=== PATIENT | male | born 1955 | race Caucasian/White ===

== ENCOUNTER 2017-03-29 16:40 | Inpatient (IN) | payer BC, OTHER ==
[~2017-03-29] VITALS: Ht 175.3 cm; Wt 86.2 kg
[2017-03-29 20:12] VITALS: BP 91/64
[2017-03-29] MEDS ORDERED: THIAMINE HCL 200 MG/2 ML VIAL IM ONE (20:45)
[2017-03-29] MEDS ORDERED: ONDANSETRON ODT 4 MG TAB.RAPDIS SL PRN (20:45)
[2017-03-29] MEDS ORDERED: ACETAMINOPHEN 325 MG TABLET PO PRN (20:45)
[2017-03-29] MEDS ORDERED: MAGNESIUM HYDROXIDE 30 ML LIQUID UDC PO PRN (20:45)
[2017-03-29] MEDS ORDERED: MAG HYDROX/AL HYDROX/SIMETH 30 ML LIQUID UDC PO PRN (20:45)
[2017-03-29] MEDS ORDERED: LORAZEPAM 1 MG TABLET PO PRN ×2 (20:45)
[2017-03-29] MEDS ORDERED: LORAZEPAM 2 MG/1 ML VIAL IM PRN (20:45)
[2017-03-29] MEDS ORDERED: ONDANSETRON 4 MG/2 ML VIAL IM PRN (20:45)
[2017-03-29] MEDS ORDERED: DICYCLOMINE HCL 20 MG TABLET PO PRN (20:45)
[2017-03-29] MEDS ORDERED: LOPERAMIDE HCL 2 MG CAPSULE PO PRN (20:45)
[2017-03-29] MEDS ORDERED: MIRALAX 17 GM POWD.PACK PO PRN (20:45)
[2017-03-29] MEDS: PATIENT MAY USE OWN MED- MD OK PO SCH (21:00)
[2017-03-29] MEDS ORDERED: LEVETIRACETAM 500 MG/5 ML LIQUID UDC NG SCH (21:00)
[2017-03-29 22:04] LABS: BASOPHILS % (AUTO) 0.8 % (0.0-2.0); EOSINOPHILS # (AUTO) 0.1 K/uL (0.0-0.7); EOSINOPHILS % (AUTO) 2.6 % (0.0-7.0); HEMATOCRIT 42.7 % (40-50); HEMOGLOBIN 14.7 G/DL (14.0-18.0); LYMPHOCYTES # (AUTO) 1.8 K/uL (20.0-40.0); LYMPHOCYTES % (AUTO) 38.2 % (20.5-51.5); MEAN CORPUSCULAR HEMOGLOBIN 31.9 UUG (27.0-31.0); MEAN CORPUSCULAR HGB CONC 34 g/dL (32.0-37.0); MEAN CORPUSCULAR VOLUME 92.7 FL (82.0-92.0); MONOCYTES # (AUTO) 0.6 K/uL (2.0-10.0); MONOCYTES % (AUTO) 12.6 % (0.0-11.0); NEUTROPHILS # (AUTO) 2.3 K/uL (1.8-8.9); NEUTROPHILS % (AUTO) 45.8 % (38.5-71.5); PLATELET COUNT (AUTO) 213 K/UL (150-450); RED BLOOD CELL COUNT(AUTO) 4.61 MIL/UL (4.7-6.1); RED CELL DISTRIBUTION WIDTH 12.4 % (11.5-14.5); WHITE BLOOD COUNT (AUTO) 4.8 K/UL (4.0-11.2)
[2017-03-29] MEDS: LEVETIRACETAM 500 MG TABLET PO SCH (22:12)
[2017-03-29 22:29] LABS: BILIRUBIN,TOTAL 0.7 mg/dL (0.2-1.0); CALCIUM 8.6 mg/dL (8.5-10.1); CREATININE 1.2 mg/dL (0.6-1.3); MAGNESIUM 1.8 mg/dL (1.8-2.4); POTASSIUM 4.1 mmol/L (3.5-5.1); TOTAL PROTEIN, SERUM 7.1 g/dL (6.4-8.2)
[2017-03-29 22:40] LABS: THYROID STIMULATING HORMONE 2.289 mIU/mL (0.358-3.740)
[2017-03-29 22:44] LABS: HIV-1 p24 ANTIGEN NON REACTIVE (NONREACTIVE); HIV-1/2 ANTIBODY NON REACTIVE (NONREACTIVE)
[2017-03-30 00:14] VITALS: BP 118/79
[2017-03-30] MEDS ORDERED: ALFU10TA10 PO (02:28)
[2017-03-30] MEDS ORDERED: TRAZ-147 PO (02:28)
[2017-03-30] MEDS ORDERED: METO-304 PO (02:28)
[2017-03-30] MEDS ORDERED: CELE100C98 PO (02:28)
[2017-03-30] MEDS ORDERED: LEVO50TA8 PO (02:28)
[2017-03-30] MEDS ORDERED: GABA-536 PO (02:28)
[2017-03-30] MEDS ORDERED: TEST1.25 TD (02:28)
[2017-03-30] MEDS ORDERED: CLON0.1T PO (02:28)
[2017-03-30] MEDS ORDERED: LEVE500T9 PO (02:28)
[2017-03-30] MEDS ORDERED: QUET100T PO (02:28)
[2017-03-30] MEDS ORDERED: PANT40TA4 PO (02:28)
[2017-03-30] MEDS ORDERED: ZIPR40CA14 PO (02:28)
[2017-03-30] MEDS ORDERED: TADA5TAB2 PO (02:28)
[2017-03-30] MEDS ORDERED: VENL75CA62 PO (02:28)
[2017-03-30] MEDS: IV NS 1000 ML 1,000 ML IV PRN ×2 (03:42→17:00)
[2017-03-30 04:05] VITALS: BP 122/84
[2017-03-30 04:20] LABS: *AMPHETAMINE, URINE NEGATIVE (NEGATIVE); *BARBITURATE, URINE NEGATIVE (NEGATIVE); *CANNABINOID, URINE NEGATIVE (NEGATIVE); *COCCAINE, URINE NEGATIVE (NEGATIVE); *OPIATE, URINE NEGATIVE (NEGATIVE); *PHENCYCLIDINE SCREEN,URINE NEGATIVE (NEGATIVE)
[2017-03-30] MEDS: PANTOPRAZOLE SODIUM 40 MG TABLET.DR PO SCH (06:51)
[2017-03-30] MEDS: LEVOTHYROXINE SODIUM 50 MCG TABLET PO SCH (06:51)
[2017-03-30 08:00] VITALS: BP 121/79
[2017-03-30] MEDS: THIAMINE HCL 100 MG TABLET PO SCH (08:22)
[2017-03-30] MEDS: FOLIC ACID 1 MG TABLET PO SCH (08:22)
[2017-03-30] MEDS: LEVETIRACETAM 500 MG TABLET PO SCH ×2 (08:22→21:12)
[2017-03-30] MEDS: GABAPENTIN 400 MG CAPSULE PO SCH ×3 (08:22→16:14)
[2017-03-30] MEDS: LORAZEPAM 1 MG TABLET PO SCH ×4 (08:22→21:11)
[2017-03-30] MEDS: MULTIVITAMINS,THERAPEUTIC TABLET PO SCH (08:22)
[2017-03-30] MEDS ORDERED: TUBERCULIN,PURIF.PROT.DERIV. 5 TU/0.1 ML TEST ID ONE (09:00)
[2017-03-30 12:00] VITALS: BP 142/89
[2017-03-30] MEDS: ENOXAPARIN SODIUM 40 MG/0.4 ML DISP.SYRIN SQ SCH (12:29)
[2017-03-30] MEDS: LOPERAMIDE HCL 2 MG CAPSULE PO PRN (16:13)
[2017-03-30] MEDS: QUETIAPINE FUMARATE 100 MG TABLET PO SCH (16:13)
[2017-03-30 16:20] VITALS: BP 180/107
[2017-03-30] MEDS: hydrALAZINE HCL 25 MG TABLET PO PRN ×2 (16:21→23:50)
[2017-03-30] MEDS ORDERED: METOPROLOL SUCCINATE XL 50 MG TAB.SR.24H PO ONE (17:00)
[2017-03-30 20:00] VITALS: BP 160/93
[2017-03-30] MEDS: diphenhydrAMINE 50 MG CAPSULE PO PRN (21:12)
[2017-03-30] MEDS: IBUPROFEN 400 MG TABLET PO PRN (21:12)
[2017-03-30] MEDS: PATIENT MAY USE OWN MED- MD OK PO SCH (21:32)
[2017-03-31] VITALS: BP 171/110
[2017-03-31] MEDS ORDERED: CLONIDINE HCL 0.1 MG TABLET PO ONE ×2 (02:45→04:45)
[2017-03-31] MEDS ORDERED: CLONIDINE HCL 0.1 MG TABLET ONE ×2 (02:53→04:44)
[2017-03-31] MEDS: PANTOPRAZOLE SODIUM 40 MG TABLET.DR PO SCH (06:42)
[2017-03-31] MEDS: LEVOTHYROXINE SODIUM 50 MCG TABLET PO SCH (06:42)
[2017-03-31] MEDS: METOPROLOL SUCCINATE XL 50 MG TAB.SR.24H PO SCH (06:56)
[2017-03-31 07:29] VITALS: BP 180/105
[2017-03-31 08:15] VITALS: BP 183/103
[2017-03-31] MEDS: LORAZEPAM 1 MG TABLET PO SCH ×3 (08:15→20:54)
[2017-03-31] MEDS: MULTIVITAMINS,THERAPEUTIC TABLET PO SCH (08:15)
[2017-03-31] MEDS: GABAPENTIN 400 MG CAPSULE PO SCH ×3 (08:15→17:19)
[2017-03-31] MEDS: QUETIAPINE FUMARATE 100 MG TABLET PO SCH (08:15)
[2017-03-31] MEDS: LEVETIRACETAM 500 MG TABLET PO SCH ×2 (08:16→20:54)
[2017-03-31] MEDS: FOLIC ACID 1 MG TABLET PO SCH (08:16)
[2017-03-31] MEDS: THIAMINE HCL 100 MG TABLET PO SCH (08:16)
[2017-03-31] MEDS: ENOXAPARIN SODIUM 40 MG/0.4 ML DISP.SYRIN SQ SCH (08:17)
[2017-03-31 08:28] LABS: BASOPHILS % (AUTO) 0.8 % (0.0-2.0); EOSINOPHILS # (AUTO) 0.1 K/uL (0.0-0.7); EOSINOPHILS % (AUTO) 3.1 % (0.0-7.0); HEMATOCRIT 41.7 % (40-50); HEMOGLOBIN 14.3 G/DL (14.0-18.0); LYMPHOCYTES # (AUTO) 0.8 K/uL (20.0-40.0); LYMPHOCYTES % (AUTO) 21.5 % (20.5-51.5); MEAN CORPUSCULAR HEMOGLOBIN 31.1 UUG (27.0-31.0); MEAN CORPUSCULAR HGB CONC 34 g/dL (32.0-37.0); MEAN CORPUSCULAR VOLUME 90.8 FL (82.0-92.0); MONOCYTES # (AUTO) 0.4 K/uL (2.0-10.0); MONOCYTES % (AUTO) 12.2 % (0.0-11.0); NEUTROPHILS # (AUTO) 2.3 K/uL (1.8-8.9); NEUTROPHILS % (AUTO) 62.4 % (38.5-71.5); PLATELET COUNT (AUTO) 192 K/UL (150-450); RED BLOOD CELL COUNT(AUTO) 4.59 MIL/UL (4.7-6.1); RED CELL DISTRIBUTION WIDTH 12.1 % (11.5-14.5); WHITE BLOOD COUNT (AUTO) 3.7 K/UL (4.0-11.2)
[2017-03-31 08:44] LABS: CALCIUM 8.7 mg/dL (8.5-10.1); CREATININE 1.1 mg/dL (0.6-1.3); MAGNESIUM 1.7 mg/dL (1.8-2.4); PHOSPHOROUS 3.1 mg/dL (2.5-4.9); POTASSIUM 4.3 mmol/L (3.5-5.1)
[2017-03-31] MEDS ORDERED: VENLAFAXINE XR 75 MG CAP.SR.24H PO SCH (09:00)
[2017-03-31 09:05] LABS: FOLIC ACID 11.6 NG/ML (8.6-58.9)
[2017-03-31] MEDS ORDERED: LORAZEPAM 1 MG TABLET PO ONE (09:45)
[2017-03-31] MEDS ORDERED: CLONIDINE HCL 0.2 MG TABLET PO ONE (09:45)
[2017-03-31 10:10] LABS: HCV AB <0.1 s/co ratio (0.0-0.9); HEPATITIS B CORE AB, IgM Negative (Negative); HEPATITIS B SURFACE AG Negative (Negative)
[2017-03-31] MEDS: hydrALAZINE HCL 25 MG TABLET PO PRN (10:28)
[2017-03-31] MEDS ORDERED: MAGNESIUM OXIDE 400 MG TABLET PO ONE (11:45)
[2017-03-31 12:00] VITALS: BP 148/95
[2017-03-31 13:09] LABS: AMMONIA < 10 umol/L (11-32)
[2017-03-31 13:19] LABS: ALANINE AMINOTRANSFERASE 21 U/L (16-63); ALBUMIN 3.5 g/dL (3.4-5.0); ALKALINE PHOSPHATASE 66 U/L (50-136); ASPARTATE AMINOTRANSFERASE 21 U/L (15-37); BILIRUBIN,DIRECT 0.1 mg/dL (0.0-0.2); BILIRUBIN,TOTAL 0.2 mg/dL (0.2-1.0); BILIRUBIN,TOTAL 0.3 mg/dL (0.2-1.0); CALCIUM 8.4 mg/dL (8.5-10.1); CARBON DIOXIDE 29 mmol/L (21-32); CHLORIDE 102 mmol/L (98-107); CREATININE 1.2 mg/dL (0.6-1.3); GFR 62 mL/min (>60); GLUCOSE 124 mg/dL (74-106); POTASSIUM 4.7 mmol/L (3.5-5.1); SODIUM SERUM 135 mmol/L (136-145); TOTAL PROTEIN, SERUM 6.3 g/dL (6.4-8.2); UREA NITROGEN, BLOOD 7 mg/dL (7-18)
[2017-03-31 15:28] LABS: *BILIRUBIN,URIN NEGATIVE (NEGATIVE); *BLOOD, URINE NEGATIVE (NEGATIVE); *CLARITY,URINE CLEAR (CLEAR); *COLOR,URINE LIGHT YELLOW (YELLOW); *KETONES,URINE NEGATIVE (NEGATIVE); *PROTEIN,URINE NEGATIVE (NEGATIVE); LEUKOCYTE ESTERASE ,URINE NEGATIVE (NEGATIVE); NITRITE, URINE NEGATIVE (NEGATIVE); PH,URINE 6.5 (5.0-8.0); UGLUCOSE NEGATIVE (NEGATIVE)
[2017-03-31 15:34] LABS: BACTERIA,URINE FEW /HPF (NONE SEEN); RBC,URINE 0-3 /HPF (0-3); SQUAMOUS EPITHELIAL CELL,UR NONE SEEN /HPF (NONE SEEN); WBC,URINE NONE SEEN /HPF (0-3)
[2017-03-31 16:10] LABS: ABG BASE EXCESS -0.2 mmol/L; ABG HCO3 23.9 mmol/L; ABG PCO2 37.2 mmHg (35.0-45.0); ABG PH 7.425 (7.350-7.450); ABG PO2 74.4 mmHg (75.0-100.0); ABG SITE RIGHT RADIAL; ABG TOTAL HEMOGLOBIN 13.2 G/dL (13.5-18.0); COHb 1.8 % (0.5-1.5); MetHb 0.3 % (0.0-1.5); O2Hb 93.3 % (94.0-97.0); VENT MODE ROOM AIR
[2017-03-31 16:55] VITALS: BP 122/85
[2017-03-31] MEDS: CLONIDINE HCL 0.1 MG TABLET PO SCH (17:20)
[2017-03-31 20:00] VITALS: BP 125/84
[2017-03-31] MEDS ORDERED: LORAZEPAM 1 MG TABLET PO PRN ×2 (20:15)
[2017-03-31] MEDS: PATIENT MAY USE OWN MED- MD OK PO SCH (20:53)
[2017-04-01] VITALS: BP 143/100
[2017-04-01 04:00] VITALS: BP 154/109
[2017-04-01] MEDS: LEVOTHYROXINE SODIUM 50 MCG TABLET PO SCH (07:30)
[2017-04-01] MEDS: PANTOPRAZOLE SODIUM 40 MG TABLET.DR PO SCH (07:30)
[2017-04-01 07:40] LABS: BASOPHILS % (AUTO) 0.1 % (0.0-2.0); EOSINOPHILS # (AUTO) 0.2 K/uL (0.0-0.7); EOSINOPHILS % (AUTO) 3.4 % (0.0-7.0); HEMATOCRIT 40.6 % (40-50); LYMPHOCYTES # (AUTO) 1.1 K/uL (20.0-40.0); LYMPHOCYTES % (AUTO) 21.1 % (20.5-51.5); MEAN CORPUSCULAR HGB CONC 35 g/dL (32.0-37.0); MEAN CORPUSCULAR VOLUME 92.7 FL (82.0-92.0); MONOCYTES # (AUTO) 0.6 K/uL (2.0-10.0); MONOCYTES % (AUTO) 11.6 % (0.0-11.0); NEUTROPHILS # (AUTO) 3.2 K/uL (1.8-8.9); NEUTROPHILS % (AUTO) 63.8 % (38.5-71.5); PLATELET COUNT (AUTO) 197 K/UL (150-450); RED BLOOD CELL COUNT(AUTO) 4.38 MIL/UL (4.7-6.1); RED CELL DISTRIBUTION WIDTH 12.4 % (11.5-14.5)
[2017-04-01 07:54] LABS: CALCIUM 8.7 mg/dL (8.5-10.1); CREATININE 1.1 mg/dL (0.6-1.3); MAGNESIUM 1.8 mg/dL (1.8-2.4); PHOSPHOROUS 3.8 mg/dL (2.5-4.9)
[2017-04-01 07:59] LABS: WHITE BLOOD COUNT (AUTO) 5.1 K/UL (4.0-11.2)
[2017-04-01 09:20] VITALS: BP 162/103
[2017-04-01] MEDS: METOPROLOL SUCCINATE XL 50 MG TAB.SR.24H PO SCH (09:27)
[2017-04-01] MEDS: AMLODIPINE 5 MG TABLET PO SCH (09:28)
[2017-04-01] MEDS: CLONIDINE HCL 0.1 MG TABLET PO SCH ×2 (09:28→16:17)
[2017-04-01] MEDS: ENOXAPARIN SODIUM 40 MG/0.4 ML DISP.SYRIN SQ SCH (09:28)
[2017-04-01] MEDS: THIAMINE HCL 100 MG TABLET PO SCH (09:29)
[2017-04-01] MEDS: MULTIVITAMINS,THERAPEUTIC TABLET PO SCH (09:29)
[2017-04-01] MEDS: LEVETIRACETAM 500 MG TABLET PO SCH ×2 (09:29→21:36)
[2017-04-01] MEDS: FOLIC ACID 1 MG TABLET PO SCH (09:29)
[2017-04-01] MEDS: GABAPENTIN 400 MG CAPSULE PO SCH ×3 (09:29→16:16)
[2017-04-01] MEDS: LORAZEPAM 1 MG TABLET PO SCH ×4 (09:29→21:36)
[2017-04-01] MEDS: IBUPROFEN 400 MG TABLET PO PRN (11:28)
[2017-04-01] MEDS: hydrALAZINE HCL 25 MG TABLET PO PRN (11:31)
[2017-04-01] MEDS: CLONIDINE HCL 0.1 MG TABLET PO PRN (11:31)
[2017-04-01 12:31] VITALS: BP 192/120
[2017-04-01] MEDS: VENLAFAXINE XR 75 MG CAP.SR.24H PO SCH (12:59)
[2017-04-01] MEDS: QUETIAPINE FUMARATE 100 MG TABLET PO SCH ×2 (12:59→16:16)
[2017-04-01] MEDS: LISINOPRIL 10 MG TABLET PO SCH (13:31)
[2017-04-01 16:21] VITALS: BP 149/88
[2017-04-01 20:00] VITALS: BP 118/65
[2017-04-01] MEDS: PATIENT MAY USE OWN MED- MD OK PO SCH (21:37)
[2017-04-02] VITALS: BP 144/86
[2017-04-02 04:00] VITALS: BP 116/56
[2017-04-02] MEDS: PANTOPRAZOLE SODIUM 40 MG TABLET.DR PO SCH (06:59)
[2017-04-02] MEDS: LEVOTHYROXINE SODIUM 50 MCG TABLET PO SCH (06:59)
[2017-04-02 08:00] VITALS: BP 136/70
[2017-04-02] MEDS: THIAMINE HCL 100 MG TABLET PO SCH (09:00)
[2017-04-02] MEDS: LEVETIRACETAM 500 MG TABLET PO SCH ×2 (09:00→20:49)
[2017-04-02] MEDS: FOLIC ACID 1 MG TABLET PO SCH (09:00)
[2017-04-02] MEDS: VENLAFAXINE XR 75 MG CAP.SR.24H PO SCH (09:00)
[2017-04-02] MEDS: GABAPENTIN 400 MG CAPSULE PO SCH ×2 (09:00→12:10)
[2017-04-02] MEDS: MULTIVITAMINS,THERAPEUTIC TABLET PO SCH (09:00)
[2017-04-02] MEDS: QUETIAPINE FUMARATE 100 MG TABLET PO SCH ×3 (09:00→17:01)
[2017-04-02] MEDS: LISINOPRIL 10 MG TABLET PO SCH (09:01)
[2017-04-02] MEDS: AMLODIPINE 5 MG TABLET PO SCH (09:01)
[2017-04-02] MEDS: CLONIDINE HCL 0.1 MG TABLET PO SCH ×2 (09:01→17:01)
[2017-04-02] MEDS: ENOXAPARIN SODIUM 40 MG/0.4 ML DISP.SYRIN SQ SCH (09:02)
[2017-04-02] MEDS: LORAZEPAM 1 MG TABLET PO SCH ×2 (09:02→14:27)
[2017-04-02] MEDS: METOPROLOL SUCCINATE XL 50 MG TAB.SR.24H PO SCH (09:03)
[2017-04-02 12:00] VITALS: BP 167/100
[2017-04-02] MEDS ORDERED: LORAZEPAM 1 MG TABLET PO ONE (12:00)
[2017-04-02] MEDS: CLONIDINE HCL 0.1 MG TABLET PO PRN (12:09)
[2017-04-02] MEDS ORDERED: AMLODIPINE 5 MG TABLET PO ONE (14:00)
[2017-04-02] MEDS: GABAPENTIN 300 MG CAPSULE PO SCH ×2 (14:26→20:50)
[2017-04-02] MEDS ORDERED: METOPROLOL SUCCINATE XL 50 MG TAB.SR.24H PO ONE (15:00)
[2017-04-02 16:00] VITALS: BP 158/96
[2017-04-02 20:00] VITALS: BP 141/91
[2017-04-02] MEDS: PATIENT MAY USE OWN MED- MD OK PO SCH (20:50)
[2017-04-02] MEDS ORDERED: LORAZEPAM 1 MG TABLET PO SCH (21:00)
[2017-04-02] MEDS ORDERED: hydrALAZINE HCL 25 MG TABLET PO ONE (22:00)
[2017-04-03] VITALS: BP 129/84
[2017-04-03 04:00] VITALS: BP 138/89
[2017-04-03] MEDS: PANTOPRAZOLE SODIUM 40 MG TABLET.DR PO SCH (06:29)
[2017-04-03] MEDS: LEVOTHYROXINE SODIUM 50 MCG TABLET PO SCH (06:29)
[2017-04-03 07:41] LABS: BASOPHILS % (AUTO) 0.8 % (0.0-2.0); EOSINOPHILS # (AUTO) 0.2 K/uL (0.0-0.7); EOSINOPHILS % (AUTO) 3.9 % (0.0-7.0); HEMATOCRIT 40.2 % (40-50); HEMOGLOBIN 13.8 G/DL (14.0-18.0); LYMPHOCYTES # (AUTO) 1.3 K/UL (0.8-4.8); MEAN CORPUSCULAR HEMOGLOBIN 31.8 UUG (27.0-31.0); MEAN CORPUSCULAR HGB CONC 34 g/dL (32.0-37.0); MEAN CORPUSCULAR VOLUME 92.7 FL (82.0-92.0); MONOCYTES # (AUTO) 0.8 K/UL (0.1-1.30); MONOCYTES % (AUTO) 17.1 % (0.0-11.0); NEUTROPHILS # (AUTO) 2.1 K/UL (1.8-8.9); NEUTROPHILS % (AUTO) 48.2 % (38.5-71.5); PLATELET COUNT (AUTO) 212 K/UL (150-450); RED BLOOD CELL COUNT(AUTO) 4.33 MIL/UL (4.7-6.1); RED CELL DISTRIBUTION WIDTH 12.6 % (11.5-14.5); WHITE BLOOD COUNT (AUTO) 4.4 K/UL (4.0-11.2)
[2017-04-03 07:55] LABS: MAGNESIUM 2.1 mg/dL (1.8-2.4); PHOSPHOROUS 4.3 mg/dL (2.5-4.9); POTASSIUM 4.2 mmol/L (3.5-5.1)
[2017-04-03 08:00] VITALS: BP 163/95
[2017-04-03 08:09] LABS: BAND % (MANUAL) 1 % (0-10); LYMPHOCYTES % (MANUAL) 36 % (20-40); MONOCYTES % (MANUAL) 14 % (2-10); NEUTROPHILS % (MANUAL) 49 % (42-75); PLATELET ESTIMATE ADEQUATE
[2017-04-03] MEDS: GABAPENTIN 300 MG CAPSULE PO SCH ×3 (08:34→20:50)
[2017-04-03] MEDS: VENLAFAXINE XR 75 MG CAP.SR.24H PO SCH (08:34)
[2017-04-03] MEDS: MULTIVITAMINS,THERAPEUTIC TABLET PO SCH (08:34)
[2017-04-03] MEDS: CLONIDINE HCL 0.1 MG TABLET PO SCH ×2 (08:35→16:55)
[2017-04-03] MEDS: AMLODIPINE 10 MG TABLET PO SCH (08:35)
[2017-04-03] MEDS: FOLIC ACID 1 MG TABLET PO SCH (08:36)
[2017-04-03] MEDS: LEVETIRACETAM 500 MG TABLET PO SCH ×2 (08:36→20:50)
[2017-04-03] MEDS: LISINOPRIL 10 MG TABLET PO SCH (08:36)
[2017-04-03] MEDS: LORAZEPAM 1 MG TABLET PO SCH ×2 (08:36→20:50)
[2017-04-03] MEDS: THIAMINE HCL 100 MG TABLET PO SCH (08:36)
[2017-04-03] MEDS: METOPROLOL SUCCINATE XL 50 MG TAB.SR.24H PO SCH (08:37)
[2017-04-03] MEDS: ENOXAPARIN SODIUM 40 MG/0.4 ML DISP.SYRIN SQ SCH (08:38)
[2017-04-03] MEDS: QUETIAPINE FUMARATE 100 MG TABLET PO SCH ×3 (08:58→16:55)
[2017-04-03] MEDS ORDERED: AMLODIPINE 5 MG TABLET PO SCH (09:00)
[2017-04-03] MEDS: LOPERAMIDE HCL 2 MG CAPSULE PO PRN (09:56)
[2017-04-03 12:00] VITALS: BP 132/88
[2017-04-03 16:00] VITALS: BP 137/83
[2017-04-03 20:00] VITALS: BP 141/79
[2017-04-03] MEDS: PATIENT MAY USE OWN MED- MD OK PO SCH (20:51)
[2017-04-03] MEDS ORDERED: LISINOPRIL 10 MG TABLET PO ONE (21:00)
[2017-04-03] MEDS: HYDROXYZINE PAMOATE 25 MG CAPSULE PO PRN (23:17)
[2017-04-03] MEDS: diphenhydrAMINE 50 MG CAPSULE PO PRN (23:17)
[2017-04-04] VITALS: BP 157/94
[2017-04-04] MEDS: hydrALAZINE HCL 25 MG TABLET PO PRN (01:23)
[2017-04-04] MEDS ORDERED: diphenhydrAMINE 50 MG CAPSULE PO ONE (01:30)
[2017-04-04] MEDS: diphenhydrAMINE 50 MG CAPSULE PO PRN ×2 (01:34→22:07)
[2017-04-04] MEDS: CLONIDINE HCL 0.1 MG TABLET PO PRN (03:08)
[2017-04-04] MEDS: PANTOPRAZOLE SODIUM 40 MG TABLET.DR PO SCH (07:11)
[2017-04-04] MEDS: LEVOTHYROXINE SODIUM 50 MCG TABLET PO SCH (07:11)
[2017-04-04 08:00] VITALS: BP 141/77
[2017-04-04] MEDS ORDERED: LISINOPRIL 10 MG TABLET PO SCH (09:00)
[2017-04-04] MEDS ORDERED: LORAZEPAM 1 MG TABLET PO SCH (09:00)
[2017-04-04] MEDS: CHOLECALCIFEROL 1,000 UNIT TABLET PO SCH (09:19)
[2017-04-04] MEDS: MULTIVITAMINS,THERAPEUTIC TABLET PO SCH (09:19)
[2017-04-04] MEDS: LEVETIRACETAM 500 MG TABLET PO SCH ×2 (09:19→20:25)
[2017-04-04] MEDS: QUETIAPINE FUMARATE 100 MG TABLET PO SCH ×3 (09:19→16:10)
[2017-04-04] MEDS: CLONIDINE HCL 0.1 MG TABLET PO SCH ×2 (09:20→16:11)
[2017-04-04] MEDS: AMLODIPINE 10 MG TABLET PO SCH (09:20)
[2017-04-04] MEDS: THIAMINE HCL 100 MG TABLET PO SCH (09:20)
[2017-04-04] MEDS: LISINOPRIL 20 MG TABLET PO SCH (09:20)
[2017-04-04] MEDS: GABAPENTIN 300 MG CAPSULE PO SCH ×3 (09:20→20:25)
[2017-04-04] MEDS: VENLAFAXINE XR 75 MG CAP.SR.24H PO SCH (09:20)
[2017-04-04] MEDS: FOLIC ACID 1 MG TABLET PO SCH (09:20)
[2017-04-04] MEDS: METOPROLOL SUCCINATE XL 50 MG TAB.SR.24H PO SCH (09:21)
[2017-04-04] MEDS: ENOXAPARIN SODIUM 40 MG/0.4 ML DISP.SYRIN SQ SCH (09:22)
[2017-04-04 12:00] VITALS: BP 112/72
[2017-04-04 16:00] VITALS: BP 118/67
[2017-04-04 20:00] VITALS: BP 109/68
[2017-04-04] MEDS: PATIENT MAY USE OWN MED- MD OK PO SCH (20:26)
[2017-04-04 21:55] LABS: *AMPHETAMINE, URINE NEGATIVE (NEGATIVE); *BARBITURATE, URINE NEGATIVE (NEGATIVE); *CANNABINOID, URINE NEGATIVE (NEGATIVE); *COCCAINE, URINE NEGATIVE (NEGATIVE); *OPIATE, URINE NEGATIVE (NEGATIVE); *PHENCYCLIDINE SCREEN,URINE NEGATIVE (NEGATIVE)
[2017-04-04] MEDS: HYDROXYZINE PAMOATE 25 MG CAPSULE PO PRN (22:07)
[2017-04-05] VITALS: BP 114/70
[2017-04-05 04:00] VITALS: BP 111/63
[2017-04-05] MEDS: PANTOPRAZOLE SODIUM 40 MG TABLET.DR PO SCH (06:37)
[2017-04-05] MEDS: LEVOTHYROXINE SODIUM 50 MCG TABLET PO SCH (06:37)
[2017-04-05 08:05] VITALS: BP 142/88
[2017-04-05] MEDS: ENOXAPARIN SODIUM 40 MG/0.4 ML DISP.SYRIN SQ SCH (09:03)
[2017-04-05] MEDS: GABAPENTIN 300 MG CAPSULE PO SCH (09:03)
[2017-04-05] MEDS: FOLIC ACID 1 MG TABLET PO SCH (09:04)
[2017-04-05] MEDS: MULTIVITAMINS,THERAPEUTIC TABLET PO SCH (09:04)
[2017-04-05] MEDS: VENLAFAXINE XR 75 MG CAP.SR.24H PO SCH (09:04)
[2017-04-05] MEDS: CHOLECALCIFEROL 1,000 UNIT TABLET PO SCH (09:04)
[2017-04-05] MEDS: LISINOPRIL 20 MG TABLET PO SCH (09:04)
[2017-04-05] MEDS: METOPROLOL SUCCINATE XL 50 MG TAB.SR.24H PO SCH (09:04)
[2017-04-05] MEDS: AMLODIPINE 10 MG TABLET PO SCH (09:04)
[2017-04-05 09:05] VITALS: BP 142/88
[2017-04-05] MEDS: LEVETIRACETAM 500 MG TABLET PO SCH (09:05)
[2017-04-05] MEDS: THIAMINE HCL 100 MG TABLET PO SCH (09:05)
[2017-04-05] MEDS: QUETIAPINE FUMARATE 100 MG TABLET PO SCH (09:05)
[2017-04-05] MEDS: CLONIDINE HCL 0.1 MG TABLET PO SCH (09:05)
[2017-04-05] MEDS ORDERED: CHOL10002 PO (10:40)
[2017-04-05] MEDS ORDERED: AMLO10TA2 PO (10:40)
[2017-04-05] MEDS ORDERED: METO50TA7 PO (10:40)
[2017-04-05] MEDS ORDERED: HYDR-3895 PO (10:40)
[2017-04-05] MEDS ORDERED: Gabapentin PO (10:40)
[2017-04-05] MEDS ORDERED: Lisinopril PO (10:40)
== END 2017-04-05 13:03 | disposition home or self-care (01) | DRG 895 ==
LOC: SRC 18:35
PROVIDERS: ADMIT Internal Medicine; ATTEND Internal Medicine
PROC: HZ2ZZZZ Detoxification Services for Substance Abuse Treatment (ICD-10-PCS; principal; 2017-03-29)
PROC: HZ51ZZZ Individual Psychotherapy for Substance Abuse Treatment, Behavioral (ICD-10-PCS; 2017-04-02)
DX: F10.230 Alcohol dependence with withdrawal, uncomplicated (principal); I50.33 Acute on chronic diastolic (congestive) heart failure; F33.3 Major depressive disorder, recurrent, severe with psychotic symptoms; E87.1 Hypo-osmolality and hyponatremia; F10.220 Alcohol dependence with intoxication, uncomplicated; Y90.4 Blood alcohol level of 80-99 mg/100 ml; G40.909 Epilepsy, unspecified, not intractable, without status epilepticus; Z82.0 Family history of epilepsy and other diseases of the nervous system; Z81.8 Family history of other mental and behavioral disorders; Z81.4 Family history of other substance abuse and dependence; H91.13 Presbycusis, bilateral; G47.00 Insomnia, unspecified; K21.9 Gastro-esophageal reflux disease without esophagitis; N40.0 Benign prostatic hyperplasia without lower urinary tract symptoms; E03.9 Hypothyroidism, unspecified; F17.220 Nicotine dependence, chewing tobacco, uncomplicated; E86.0 Dehydration; Z79.899 Other long term (current) drug therapy; G47.36 Sleep related hypoventilation in conditions classified elsewhere; E87.8 Other disorders of electrolyte and fluid balance, not elsewhere classified; E55.9 Vitamin D deficiency, unspecified; D75.89 Other specified diseases of blood and blood-forming organs; D53.9 Nutritional anemia, unspecified; E86.1 Hypovolemia; I11.0 Hypertensive heart disease with heart failure; R19.7 Diarrhea, unspecified; G62.1 Alcoholic polyneuropathy
CPT/HCPCS: 36415; 36600; 71010; 80307; 82306; 82746; 83690; 83735; 84100; 84443; 85025; 86592; 86625; 86705; 86803; 87046; 87086; 87340; 87806; 93307; 97001; 97116; A4663; G6040-TC; J1650; J3411; J7030; Q0163

== ENCOUNTER 2017-03-31 12:39 | Outpatient (CLI) | payer BC, OTHER ==
[~2017-03-31 12:39] MED LIST: ALFU10TA10 PO; CELE100C98 PO; CLON0.1T PO; GABA-536 PO; LEVE500T9 PO; LEVO50TA8 PO; METO-304 PO; PANT40TA4 PO; QUET100T PO; TADA5TAB2 PO; TEST1.25 TD; TRAZ-147 PO; VENL75CA62 PO; ZIPR40CA14 PO
[2017-04-05] MEDS ORDERED: HYDR-3895 PO (10:40)
[2017-04-05] MEDS ORDERED: CHOL10002 PO (10:40)
[2017-04-05] MEDS ORDERED: AMLO10TA2 PO (10:40)
[2017-04-05] MEDS ORDERED: Gabapentin PO (10:40)
[2017-04-05] MEDS ORDERED: METO50TA7 PO (10:40)
[2017-04-05] MEDS ORDERED: Lisinopril PO (10:40)
== END 2017-03-31 23:59 | disposition other institution (70) ==
LOC: RAD 12:39 → CT 23:59
PROVIDERS: ATTEND Internal Medicine
DX: I65.23 Occlusion and stenosis of bilateral carotid arteries (principal); F19.20 Other psychoactive substance dependence, uncomplicated; R90.82 White matter disease, unspecified
CPT/HCPCS: 70450

== ENCOUNTER 2017-04-09 13:00 | Inpatient (IN) | payer OTHER ==
[~2017-04-09] VITALS: Ht 175.3 cm; Wt 86.2 kg
[~2017-04-09 13:00] MED LIST changes: +AMLO10TA2 PO; -CELE100C98 PO; +CHOL10002 PO; -GABA-536 PO; +Gabapentin PO; +HYDR-3895 PO; +Lisinopril PO; -METO-304 PO; +METO50TA7 PO; -TRAZ-147 PO; -ZIPR40CA14 PO
[2017-04-09] MEDS ORDERED: CLONIDINE HCL 0.1 MG TABLET PO PRN (15:45)
[2017-04-09] MEDS ORDERED: LOPERAMIDE HCL 2 MG CAPSULE PO PRN ×2 (15:45)
[2017-04-09] MEDS ORDERED: IBUPROFEN 400 MG TABLET PO PRN (15:45)
[2017-04-09] MEDS ORDERED: ONDANSETRON 4 MG/2 ML VIAL IM PRN (15:45)
[2017-04-09] MEDS ORDERED: MIRALAX 17 GM POWD.PACK PO PRN (15:45)
[2017-04-09] MEDS ORDERED: MAGNESIUM HYDROXIDE 30 ML LIQUID UDC PO PRN (15:45)
[2017-04-09] MEDS ORDERED: LORAZEPAM 2 MG/1 ML VIAL IM PRN (15:45)
[2017-04-09] MEDS ORDERED: ACETAMINOPHEN 325 MG TABLET PO PRN (15:45)
[2017-04-09] MEDS ORDERED: DICYCLOMINE HCL 20 MG TABLET PO PRN (15:45)
[2017-04-09] MEDS ORDERED: MAG HYDROX/AL HYDROX/SIMETH 30 ML LIQUID UDC PO PRN (15:45)
[2017-04-09] MEDS ORDERED: ONDANSETRON ODT 4 MG TAB.RAPDIS SL PRN (15:45)
[2017-04-09] MEDS ORDERED: THIAMINE HCL 200 MG/2 ML VIAL IM ONE (15:45)
[2017-04-09] MEDS ORDERED: LORAZEPAM 1 MG TABLET PO PRN ×2 (15:45)
[2017-04-09 15:56] LABS: *AMPHETAMINE, URINE NEGATIVE (NEGATIVE); *BARBITURATE, URINE NEGATIVE (NEGATIVE); *CANNABINOID, URINE NEGATIVE (NEGATIVE); *COCCAINE, URINE NEGATIVE (NEGATIVE); *OPIATE, URINE NEGATIVE (NEGATIVE); *PHENCYCLIDINE SCREEN,URINE NEGATIVE (NEGATIVE)
[2017-04-09 17:55] LABS: BASOPHILS # (AUTO) 0.1 K/uL (0.0-8.0); BASOPHILS % (AUTO) 1.6 % (0.0-2.0); EOSINOPHILS # (AUTO) 0.1 K/uL (0.0-0.7); EOSINOPHILS % (AUTO) 3.5 % (0.0-7.0); HEMATOCRIT 39.2 % (40-50); HEMOGLOBIN 13.3 G/DL (14.0-18.0); LYMPHOCYTES # (AUTO) 1.1 K/UL (0.8-4.8); LYMPHOCYTES % (AUTO) 32.2 % (20.5-51.5); MEAN CORPUSCULAR HEMOGLOBIN 31.3 UUG (27.0-31.0); MEAN CORPUSCULAR HGB CONC 34 g/dL (32.0-37.0); MEAN CORPUSCULAR VOLUME 92.1 FL (82.0-92.0); MONOCYTES # (AUTO) 0.5 K/UL (0.1-1.30); MONOCYTES % (AUTO) 14.2 % (0.0-11.0); NEUTROPHILS # (AUTO) 1.6 K/UL (1.8-8.9); NEUTROPHILS % (AUTO) 48.5 % (38.5-71.5); PLATELET COUNT (AUTO) 231 K/UL (150-450); RED BLOOD CELL COUNT(AUTO) 4.26 MIL/UL (4.7-6.1); RED CELL DISTRIBUTION WIDTH 12.2 % (11.5-14.5); WHITE BLOOD COUNT (AUTO) 3.4 K/UL (4.0-11.2)
[2017-04-09 18:07] LABS: ALBUMIN 3.6 g/dL (3.4-5.0); BILIRUBIN,TOTAL 0.3 mg/dL (0.2-1.0); CALCIUM 8.8 mg/dL (8.5-10.1); CREATININE 1.1 mg/dL (0.6-1.3); MAGNESIUM 1.7 mg/dL (1.8-2.4); POTASSIUM 4.4 mmol/L (3.5-5.1); TOTAL PROTEIN, SERUM 6.8 g/dL (6.4-8.2)
[2017-04-09 18:28] LABS: HIV-1 p24 ANTIGEN NON REACTIVE (NONREACTIVE); HIV-1/2 ANTIBODY NON REACTIVE (NONREACTIVE); THYROID STIMULATING HORMONE 0.749 mIU/mL (0.358-3.740)
[2017-04-09] MEDS ORDERED: MAGNESIUM OXIDE 400 MG TABLET PO ONE (18:45)
[2017-04-09 19:03] VITALS: BP 116/79
[2017-04-09 20:17] VITALS: BP 136/83
[2017-04-09] MEDS: ALFUZOSIN 10 MG PO SCH (20:47)
[2017-04-09] MEDS: GABAPENTIN 300 MG CAPSULE PO SCH (20:48)
[2017-04-09] MEDS: diphenhydrAMINE 50 MG CAPSULE PO PRN (21:55)
[2017-04-09] MEDS: LEVETIRACETAM 500 MG/5 ML LIQUID UDC NG SCH (21:55)
[2017-04-10 00:20] VITALS: BP 101/58
[2017-04-10 04:00] VITALS: BP 118/78
[2017-04-10 08:00] VITALS: BP 140/90
[2017-04-10] MEDS ORDERED: TUBERCULIN,PURIF.PROT.DERIV. 5 TU/0.1 ML TEST ID ONE (09:00)
[2017-04-10] MEDS: PANTOPRAZOLE SODIUM 40 MG TABLET.DR PO SCH (09:27)
[2017-04-10] MEDS: FOLIC ACID 1 MG TABLET PO SCH (09:27)
[2017-04-10] MEDS: GABAPENTIN 300 MG CAPSULE PO SCH ×3 (09:27→20:10)
[2017-04-10] MEDS: CLONIDINE HCL 0.1 MG TABLET PO SCH ×2 (09:28→16:31)
[2017-04-10] MEDS: AMLODIPINE 10 MG TABLET PO SCH (09:28)
[2017-04-10] MEDS: THIAMINE HCL 100 MG TABLET PO SCH (09:28)
[2017-04-10] MEDS: CHOLECALCIFEROL 1,000 UNIT TABLET PO SCH (09:28)
[2017-04-10] MEDS: MULTIVITAMINS,THERAPEUTIC TABLET PO SCH (09:28)
[2017-04-10] MEDS: LISINOPRIL 20 MG TABLET PO SCH (09:29)
[2017-04-10] MEDS: METOPROLOL SUCCINATE XL 50 MG TAB.SR.24H PO SCH (09:29)
[2017-04-10] MEDS: LEVOTHYROXINE SODIUM 50 MCG TABLET PO SCH (09:29)
[2017-04-10] MEDS: LEVETIRACETAM 500 MG/5 ML LIQUID UDC NG SCH ×2 (09:29→20:09)
[2017-04-10 12:00] VITALS: BP 138/83
[2017-04-10] MEDS: LORAZEPAM 1 MG TABLET PO SCH ×3 (13:01→20:10)
[2017-04-10 16:00] VITALS: BP 134/91
[2017-04-10] MEDS: VENLAFAXINE XR 75 MG CAP.SR.24H PO SCH (16:31)
[2017-04-10] MEDS: QUETIAPINE FUMARATE 100 MG TABLET PO SCH ×2 (16:31→20:10)
[2017-04-10 20:02] VITALS: BP 129/83
[2017-04-10] MEDS: ALFUZOSIN 10 MG PO SCH (20:10)
[2017-04-11 00:25] VITALS: BP 131/71
[2017-04-11 04:15] VITALS: BP 110/76
[2017-04-11 07:13] LABS: BASOPHILS # (AUTO) 0.1 K/uL (0.0-8.0); BASOPHILS % (AUTO) 1.4 % (0.0-2.0); EOSINOPHILS # (AUTO) 0.2 K/uL (0.0-0.7); EOSINOPHILS % (AUTO) 3.9 % (0.0-7.0); HEMOGLOBIN 12.9 G/DL (14.0-18.0); LYMPHOCYTES # (AUTO) 1.3 K/UL (0.8-4.8); LYMPHOCYTES % (AUTO) 30.2 % (20.5-51.5); MEAN CORPUSCULAR HEMOGLOBIN 31.6 UUG (27.0-31.0); MEAN CORPUSCULAR HGB CONC 35 g/dL (32.0-37.0); MEAN CORPUSCULAR VOLUME 90.9 FL (82.0-92.0); MONOCYTES # (AUTO) 0.6 K/UL (0.1-1.30); MONOCYTES % (AUTO) 13.7 % (0.0-11.0); NEUTROPHILS # (AUTO) 2.1 K/UL (1.8-8.9); NEUTROPHILS % (AUTO) 50.8 % (38.5-71.5); PLATELET COUNT (AUTO) 233 K/UL (150-450); RED BLOOD CELL COUNT(AUTO) 4.07 MIL/UL (4.7-6.1); WHITE BLOOD COUNT (AUTO) 4.3 K/UL (4.0-11.2)
[2017-04-11 07:56] LABS: FOLIC ACID 11.9 NG/ML (8.6-58.9)
[2017-04-11 07:58] LABS: CALCIUM 8.8 mg/dL (8.5-10.1); CREATININE 1.1 mg/dL (0.6-1.3); MAGNESIUM 1.7 mg/dL (1.8-2.4); PHOSPHOROUS 4.3 mg/dL (2.5-4.9); POTASSIUM 4.3 mmol/L (3.5-5.1)
[2017-04-11 08:00] VITALS: BP 123/74
[2017-04-11] MEDS: GABAPENTIN 300 MG CAPSULE PO SCH ×3 (08:41→20:21)
[2017-04-11] MEDS: AMLODIPINE 10 MG TABLET PO SCH (08:42)
[2017-04-11] MEDS: LISINOPRIL 20 MG TABLET PO SCH (08:42)
[2017-04-11] MEDS: CHOLECALCIFEROL 1,000 UNIT TABLET PO SCH (08:42)
[2017-04-11] MEDS: PANTOPRAZOLE SODIUM 40 MG TABLET.DR PO SCH (08:42)
[2017-04-11] MEDS: LORAZEPAM 1 MG TABLET PO SCH ×2 (08:42→20:21)
[2017-04-11] MEDS: FOLIC ACID 1 MG TABLET PO SCH (08:42)
[2017-04-11] MEDS: MULTIVITAMINS,THERAPEUTIC TABLET PO SCH (08:42)
[2017-04-11] MEDS: METOPROLOL SUCCINATE XL 50 MG TAB.SR.24H PO SCH (08:43)
[2017-04-11] MEDS: CLONIDINE HCL 0.1 MG TABLET PO SCH ×2 (08:43→17:00)
[2017-04-11] MEDS: LEVETIRACETAM 500 MG/5 ML LIQUID UDC NG SCH ×2 (08:43→20:21)
[2017-04-11] MEDS: LEVOTHYROXINE SODIUM 50 MCG TABLET PO SCH (08:43)
[2017-04-11] MEDS: THIAMINE HCL 100 MG TABLET PO SCH (08:51)
[2017-04-11] MEDS: VENLAFAXINE XR 75 MG CAP.SR.24H PO SCH (08:51)
[2017-04-11] MEDS: QUETIAPINE FUMARATE 100 MG TABLET PO SCH ×3 (09:20→20:22)
[2017-04-11] MEDS ORDERED: MAGNESIUM OXIDE 400 MG TABLET PO ONE (09:45)
[2017-04-11 12:09] LABS: HCV AB <0.1 s/co ratio (0.0-0.9); HEPATITIS B CORE AB, IgM Negative (Negative); HEPATITIS B SURFACE AG Negative (Negative)
[2017-04-11 13:06] VITALS: BP 109/58
[2017-04-11 17:57] VITALS: BP 100/60
[2017-04-11 20:00] VITALS: BP 158/87
[2017-04-11] MEDS: ALFUZOSIN 10 MG PO SCH (20:21)
[2017-04-11] MEDS: diphenhydrAMINE 50 MG CAPSULE PO PRN (20:28)
[2017-04-12] VITALS: BP 123/72
[2017-04-12 04:00] VITALS: BP 133/89
[2017-04-12] MEDS: MULTIVITAMINS,THERAPEUTIC TABLET PO SCH (08:35)
[2017-04-12] MEDS: GABAPENTIN 300 MG CAPSULE PO SCH ×3 (08:35→20:35)
[2017-04-12] MEDS: THIAMINE HCL 100 MG TABLET PO SCH (08:35)
[2017-04-12] MEDS: VENLAFAXINE XR 75 MG CAP.SR.24H PO SCH (08:35)
[2017-04-12] MEDS: LISINOPRIL 20 MG TABLET PO SCH (08:36)
[2017-04-12] MEDS: AMLODIPINE 10 MG TABLET PO SCH (08:36)
[2017-04-12] MEDS: CHOLECALCIFEROL 1,000 UNIT TABLET PO SCH (08:36)
[2017-04-12] MEDS: QUETIAPINE FUMARATE 100 MG TABLET PO SCH ×3 (08:36→20:35)
[2017-04-12] MEDS: CLONIDINE HCL 0.1 MG TABLET PO SCH ×2 (08:36→17:29)
[2017-04-12] MEDS: FOLIC ACID 1 MG TABLET PO SCH (08:37)
[2017-04-12] MEDS: METOPROLOL SUCCINATE XL 50 MG TAB.SR.24H PO SCH (08:37)
[2017-04-12] MEDS: LEVOTHYROXINE SODIUM 50 MCG TABLET PO SCH (08:37)
[2017-04-12] MEDS: PANTOPRAZOLE SODIUM 40 MG TABLET.DR PO SCH (08:37)
[2017-04-12] MEDS: LEVETIRACETAM 500 MG/5 ML LIQUID UDC NG SCH ×2 (08:38→20:34)
[2017-04-12 09:27] VITALS: BP 157/99
[2017-04-12 14:09] VITALS: BP 139/86
[2017-04-12 17:28] VITALS: BP 139/86
[2017-04-12] MEDS ORDERED: HYDROXYZINE PAMOATE 25 MG CAPSULE PO PRN (17:45)
[2017-04-12 19:08] LABS: *AMPHETAMINE, URINE NEGATIVE (NEGATIVE); *BARBITURATE, URINE NEGATIVE (NEGATIVE); *CANNABINOID, URINE NEGATIVE (NEGATIVE); *COCCAINE, URINE NEGATIVE (NEGATIVE); *OPIATE, URINE NEGATIVE (NEGATIVE); *PHENCYCLIDINE SCREEN,URINE NEGATIVE (NEGATIVE)
[2017-04-12 20:00] VITALS: BP 143/99
[2017-04-12] MEDS: ALFUZOSIN 10 MG PO SCH (20:34)
[2017-04-12] MEDS: diphenhydrAMINE 50 MG CAPSULE PO PRN (20:35)
[2017-04-13] VITALS: BP 135/88
[2017-04-13 04:00] VITALS: BP 118/70
[2017-04-13] MEDS: VENLAFAXINE XR 75 MG CAP.SR.24H PO SCH (08:50)
[2017-04-13] MEDS: CHOLECALCIFEROL 1,000 UNIT TABLET PO SCH (08:50)
[2017-04-13] MEDS: LISINOPRIL 20 MG TABLET PO SCH (08:50)
[2017-04-13] MEDS: FOLIC ACID 1 MG TABLET PO SCH (08:50)
[2017-04-13] MEDS: THIAMINE HCL 100 MG TABLET PO SCH (08:50)
[2017-04-13] MEDS: GABAPENTIN 300 MG CAPSULE PO SCH (08:50)
[2017-04-13] MEDS: PANTOPRAZOLE SODIUM 40 MG TABLET.DR PO SCH (08:51)
[2017-04-13] MEDS: CLONIDINE HCL 0.1 MG TABLET PO SCH (08:51)
[2017-04-13] MEDS: AMLODIPINE 10 MG TABLET PO SCH (08:51)
[2017-04-13] MEDS: QUETIAPINE FUMARATE 100 MG TABLET PO SCH (08:51)
[2017-04-13] MEDS: MULTIVITAMINS,THERAPEUTIC TABLET PO SCH (08:51)
[2017-04-13] MEDS: LEVETIRACETAM 500 MG/5 ML LIQUID UDC NG SCH (08:52)
[2017-04-13] MEDS: LEVOTHYROXINE SODIUM 50 MCG TABLET PO SCH (08:52)
[2017-04-13] MEDS: METOPROLOL SUCCINATE XL 50 MG TAB.SR.24H PO SCH (08:52)
[2017-04-13 08:55] VITALS: BP 124/78
== END 2017-04-13 10:26 | disposition home or self-care (01) | DRG 895 ==
LOC: SRC 15:01
PROVIDERS: ADMIT Internal Medicine; ATTEND Internal Medicine
PROC: HZ2ZZZZ Detoxification Services for Substance Abuse Treatment (ICD-10-PCS; principal; 2017-04-09)
PROC: HZ41ZZZ Group Counseling for Substance Abuse Treatment, Behavioral (ICD-10-PCS; 2017-04-10)
PROC: HZ31ZZZ Individual Counseling for Substance Abuse Treatment, Behavioral (ICD-10-PCS; 2017-04-11)
DX: F10.230 Alcohol dependence with withdrawal, uncomplicated (principal); F33.3 Major depressive disorder, recurrent, severe with psychotic symptoms; F10.220 Alcohol dependence with intoxication, uncomplicated; Y90.1 Blood alcohol level of 20-39 mg/100 ml; G40.909 Epilepsy, unspecified, not intractable, without status epilepticus; K21.9 Gastro-esophageal reflux disease without esophagitis; G47.00 Insomnia, unspecified; E55.9 Vitamin D deficiency, unspecified; Z81.1 Family history of alcohol abuse and dependence; Z81.4 Family history of other substance abuse and dependence; Z82.0 Family history of epilepsy and other diseases of the nervous system; Z81.8 Family history of other mental and behavioral disorders; H91.13 Presbycusis, bilateral; N40.0 Benign prostatic hyperplasia without lower urinary tract symptoms; E03.9 Hypothyroidism, unspecified; Z79.899 Other long term (current) drug therapy; D53.9 Nutritional anemia, unspecified; D72.819 Decreased white blood cell count, unspecified; F17.220 Nicotine dependence, chewing tobacco, uncomplicated; E83.42 Hypomagnesemia; G62.1 Alcoholic polyneuropathy
CPT/HCPCS: 36415; 70030-TC; 80307; 82746; 83690; 83735; 84100; 84443; 85025; 86592; 86705; 86803; 87340; 87806; A4663; G6040-TC; J3411; Q0163